=== PATIENT | female | born 2000 | race African-American/Black ===

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

== ENCOUNTER 2021-02-02 22:45 | Emergency (ER) | payer OTHER, SELFPAY ==
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
[2021-02-02 22:46] VITALS: BP 123/72; PULSE 85; RESP 17; TEMP 36.2; O2SAT 100
[2021-02-02 23:30] VITALS: BP 109/88; PULSE 78; RESP 19; O2SAT 97
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
[2021-02-03 01:14] VITALS: BP 107/77; PULSE 78; RESP 14; O2SAT 97
[2021-02-03] MEDS: TETANUS,DIPHTHERIA,AC PERTUSSIS ADULT (0.5 ML) BOOSTRIX IM (01:17)
[2021-02-03 02:08] VITALS: BP 119/69; PULSE 62; RESP 14; O2SAT 100
[2021-02-03] MEDS: ONDANSETRON HCL ODT 4 MG TABLET PO (03:30)
[2021-02-03] MEDS: HYDROcodone/acetaminophen (*CRX) 5-325 MG TABLET 1 TAB PO (03:30)
[2021-02-03] MEDS: CEPHALEXIN 500 MG CAPSULE PO (03:30)
[2021-02-03 04:00] VITALS: BP 132/87; PULSE 77; RESP 19; O2SAT 97
== END 2021-02-03 05:15 | disposition home or self-care (01) ==
PROVIDERS: Emergency Provider Emergency Medicine
DX: S01.81XA Laceration without foreign body of other part of head, initial encounter (principal); S01.511A Laceration without foreign body of lip, initial encounter; S40.011A Contusion of right shoulder, initial encounter; L08.9 Local infection of the skin and subcutaneous tissue, unspecified; Z23 Encounter for immunization; V48.5XXA Car driver injured in noncollision transport accident in traffic accident, initial encounter; Y04.2XXA Assault by strike against or bumped into by another person, initial encounter
CPT/HCPCS: 12011; 12013; 70450; 70486; 71045; 73030; 90471; 90715; 99284; A9270